=== PATIENT | male | born 1960 | race Two or more races ===

== ENCOUNTER 2024-03-12 05:39 | Emergency (ER) | payer OTHER ==
[~2024-03-12] VITALS: Ht 177.8 cm; Wt 81.8 kg
[2024-03-12 05:39] VITALS: PULSE 140; RESP 32; O2SAT 74
[2024-03-12] MEDS: ETOMIDATE (2MG/ML) 20ML VIAL IV ONE (05:47)
[2024-03-12] MEDS: ROCURONIUM 10MG/ML 10ML VIAL IV ONE (05:48)
[2024-03-12] MEDS ORDERED: DOPamine 1600MCG/ML D5W 250 ML IV ONE (05:50)
[2024-03-12] MEDS ORDERED: ATROPINE SULF 1 MG/10ml SYR ONE (05:51)
[2024-03-12] MEDS ORDERED: EPINEPHrine HCL 250 ML IV ONE (05:57)
[2024-03-12] MEDS ORDERED: EPINEPHrine HCL 1 MG/10 ML SYRG ONE ×2 (06:14→06:18)
[2024-03-12] MEDS ORDERED: AMIODARONE HCL (50 MG/ ML) 3 ML VIAL IV ONE (06:16)
[2024-03-12] MEDS ORDERED: SODIUM BICARB 8.4% 50Meq/50ml SYR INJ ONE (06:17)
[2024-03-12] MEDS ORDERED: PHENYLEPHRINE IV 0 ML IV ONE (06:23)
[2024-03-12 19:31] VITALS: BP 122/76; PULSE 140; RESP 32; TEMP 96.4; O2SAT 74
== END 2024-03-12 06:33 ==
LOC: EDBD 05:39 → ER 05:39
DX: I46.9 Cardiac arrest, cause unspecified (principal); J96.00 Acute respiratory failure, unspecified whether with hypoxia or hypercapnia
CPT/HCPCS: 31500; 92950; 93005; 99291; J0171; J0282; J1265